=== PATIENT | male | born 1975 | race Caucasian/White ===

== ENCOUNTER 2018-07-23 08:18 | Emergency (ER) | payer MEDICARE ==
[~2018-07-23] VITALS: Ht 185.4 cm; Wt 86.2 kg
[2018-07-23 08:23] VITALS: Ht 185.4 cm; Wt 86.2 kg
[2018-07-23] MEDS ORDERED: MIRALAX527 GM PO (08:24)
[2018-07-23] MEDS ORDERED: FLOMAX0.4 MG PO (08:25)
[2018-07-23] MEDS ORDERED: ZANAFLEX2 M1 (08:25)
[2018-07-23] MEDS ORDERED: PREVACID30 MG PO (08:25)
[2018-07-23 08:58] LABS: UDS - AMPHET NEGATIVE QUAL (NEGATIVE); UDS - BARB NEGATIVE QUAL (NEGATIVE); UDS - BENZO NEGATIVE QUAL (NEGATIVE); UDS - COCAINE NEGATIVE QUAL (NEGATIVE); UDS - OPIATE NEGATIVE QUAL (NEGATIVE); UDS - PCP NEGATIVE QUAL (NEGATIVE); UDS - THC POSITIVE QUAL (NEGATIVE)
[2018-07-23 09:06] LABS: APPEARANCE CLEAR (CLEAR); BILIRUBIN NEGATIVE (NEGATIVE); COLOR YELLOW (YELLOW); GLUCOSE NEGATIVE (NEGATIVE); KETONE NEGATIVE (NEGATIVE); NITRITE NEGATIVE (NEGATIVE); PROTEIN NEGATIVE (NEGATIVE); SPECIFIC GRAVITY 1.025 (1.005-1.020); UROBILINOGEN NORMAL (NORMAL)
[2018-07-23] MEDS ORDERED: NAPROSYN500 MG PO (09:33)
[2018-07-23] MEDS ORDERED: SKELAXIN800 MG PO (09:33)
[2018-07-23 09:50] VITALS: BP 117/70
== END 2018-07-23 09:45 | disposition home or self-care (01) ==
LOC: D.ER 08:18
PROVIDERS: Family Medicine
DX: M54.5 Low back pain (principal); N40.0 Benign prostatic hyperplasia without lower urinary tract symptoms; R10.9 Unspecified abdominal pain; R30.0 Dysuria; K58.9 Irritable bowel syndrome, unspecified; B19.20 Unspecified viral hepatitis C without hepatic coma; F17.200 Nicotine dependence, unspecified, uncomplicated